=== PATIENT | female | born 1980 | race Caucasian/White ===

== ENCOUNTER 2018-05-19 20:33 | Inpatient (IN) | payer MEDICAID ==
[~2018-05-19] VITALS: Ht 175.3 cm; Wt 140.8 kg
[~2018-05-19 20:33] MED LIST: BROVANA15 MCG/2 M INH; IPRAT-ALBUT 0.5-3 ML UPD; NICODERM C1 PATCH .1 TRANSDERM; NORCO 7.5/325 T1 TA1 PO; PREDNISONE20 MG PO; PROTONIX40 MG PO; PULMICORT0.5 MG/21 UPD; SINGULAIR10 MG PO
[2018-05-19] MEDS ORDERED: ROBAXIN500 MG PO (20:51)
[2018-05-19] MEDS ORDERED: ZOFRAN4 MG PO (20:51)
[2018-05-19 21:01] LABS: BASOPHILS 0.4 % (0-2); EOSINOPHILS 3.2 % (0-7); HEMATOCRIT 34.7 % (36.0-48.0); HEMOGLOBIN 10.7 g/dL (12-16); IMMATURE GRANULOCYTES 0.3 % (0-5); LYMPHOCYTES 20.9 % (15-50); MCH 21.4 pg (26.0-34.0); MCHC 30.8 g/dL (31.0-37.0); MCV 69.3 fL (80.0-100.0); MEAN PLATELET VOLUME 8.7 fL (7.4-10.4); MONOCYTES 5.5 % (2-11); NEUTROPHILS 69.7 % (40-80); RBC 5.01 10x6/uL (4.00-5.40); RDW 17.4 % (11.5-14.5); WBC 13.9 10x3/uL (4.8-10.8)
[2018-05-19 21:06] LABS: PLATELET COUNT 479 10x3/uL (130-400)
[2018-05-19 21:30] LABS: ALBUMIN 3.7 g/dL (3.4-5.0); ANION GAP 18.2 mmol/L (8-16); BILIRUBIN - TOTAL 0.23 mg/dL (0.2-1.3); CALCIUM 9.3 mg/dL (8.5-10.1); CARBON DIOXIDE 26.2 mmol/L (21.0-32.0); CREATININE - SERUM 1.5 mg/dL (0.6-1.3); POTASSIUM - SERUM 3.4 mmol/L (3.5-5.1); PROTEIN - SERUM 8.1 g/dL (6.4-8.2)
[2018-05-19 22:00] VITALS: BP 151/68
[2018-05-19 23:07] LABS: HCG SERUM NEGATIVE (NEGATIVE)
[2018-05-19 23:35] LABS: HCG URINE NEGATIVE (NEGATIVE)
[2018-05-19 23:42] LABS: APPEARANCE CLEAR (CLEAR); BILIRUBIN NEGATIVE (NEGATIVE); COLOR YELLOW (YELLOW); GLUCOSE 100 mg/dL (NEGATIVE); KETONE LARGE mg/dL (NEGATIVE); NITRITE NEGATIVE (NEGATIVE); PROTEIN NEGATIVE (NEGATIVE); UROBILINOGEN NORMAL (NORMAL)
[2018-05-19 23:43] LABS: BACTERIA FEW /hpf (NONE SEEN); EPITHELIAL CELLS 0-5 /hpf (0-5); RED CELLS - URINE NONE SEEN /hpf (0-5); WHITE CELLS - URINE 0-5 /hpf (0-5)
[2018-05-20] VITALS (8 sets, daily range): BP systolic 124–186; BP diastolic 57–86; BMI 37.0
[2018-05-20] MEDS ORDERED: VISTARIL50 MG PO (15:23)
[2018-05-20] MEDS ORDERED: EFFEXOR XR37.5 MG PO (15:24)
[2018-05-20 21:08] LABS: APPEARANCE CLEAR (CLEAR); BILIRUBIN NEGATIVE (NEGATIVE); COLOR YELLOW (YELLOW); GLUCOSE NEGATIVE (NEGATIVE); KETONE LARGE mg/dL (NEGATIVE); NITRITE NEGATIVE (NEGATIVE); PROTEIN 1+ mg/dL (NEGATIVE); SPECIFIC GRAVITY 1.005 (1.005-1.020); UROBILINOGEN NORMAL (NORMAL)
[2018-05-20 21:10] LABS: RED CELLS - URINE 0-5 /hpf (0-5); WHITE CELLS - URINE 0-5 /hpf (0-5)
[2018-05-20 21:11] LABS: BACTERIA MODERATE /hpf (NONE SEEN)
[2018-05-20] MEDS ORDERED: MOBIC7.5 MG PO (22:08)
[2018-05-20] MEDS ORDERED: SUMATRIPTAN SUC25 MG PO (22:14)
[2018-05-21 04:00] VITALS: BP 124/61
[2018-05-21 04:27] LABS: BASOPHILS 0.1 % (0-2); EOSINOPHILS 0.1 % (0-7); HEMATOCRIT 30.2 % (36.0-48.0); HEMOGLOBIN 9.3 g/dL (12-16); IMMATURE GRANULOCYTES 0.3 % (0-5); LYMPHOCYTES 15.6 % (15-50); MCH 21.4 pg (26.0-34.0); MCHC 30.8 g/dL (31.0-37.0); MCV 69.4 fL (80.0-100.0); MEAN PLATELET VOLUME 8.8 fL (7.4-10.4); NEUTROPHILS 75.9 % (40-80); PLATELET COUNT 396 10x3/uL (130-400); RBC 4.35 10x6/uL (4.00-5.40); RDW 17.8 % (11.5-14.5); WBC 15.5 10x3/uL (4.8-10.8)
[2018-05-21 04:35] LABS: ALBUMIN 3.3 g/dL (3.4-5.0); BILIRUBIN - TOTAL 0.3 mg/dL (0.2-1.3); CALCIUM 8.7 mg/dL (8.5-10.1); POTASSIUM - SERUM 3.3 mmol/L (3.5-5.1); PROTEIN - SERUM 7.1 g/dL (6.4-8.2)
[2018-05-21 04:37] LABS: ANION GAP 7.3 mmol/L (8-16); CREATININE - SERUM 0.9 mg/dL (0.6-1.3)
[2018-05-21 08:04] VITALS: BP 169/59
[2018-05-21] MEDS ORDERED: PEPCID AC20 MG PO (10:11)
[2018-05-21] MEDS ORDERED: METOPROLOL TART25 MG PO (10:12)
[2018-05-21 10:58] VITALS: BP 196/98
[2018-05-21 12:11] VITALS: BMI 36.9
[2018-05-21 14:02] LABS: % SATURATION 5 % (15-55); IRON 23 ug/dl (35-150); TOTAL IRON BIND CAPACITY 434 ug/dl (260-445); UNSAT IRON BIND CAPACITY 411 ug/dl (150-375)
[2018-05-21 14:18] LABS: MAGNESIUM - SERUM 1.3 mg/dL (1.8-2.4)
[2018-05-21 15:24] VITALS: BP 127/58
[2018-05-21 19:37] VITALS: Ht 175.3 cm; Wt 140.8 kg
[2018-05-21 21:04] VITALS: BP 148/76
[2018-05-22 05:11] LABS: BASOPHILS 0.3 % (0-2); EOSINOPHILS 1.1 % (0-7); HEMATOCRIT 29.9 % (36.0-48.0); HEMOGLOBIN 8.9 g/dL (12-16); IMMATURE GRANULOCYTES 0.4 % (0-5); LYMPHOCYTES 30.2 % (15-50); MCHC 29.8 g/dL (31.0-37.0); MCV 70.7 fL (80.0-100.0); MONOCYTES 7.1 % (2-11); NEUTROPHILS 60.9 % (40-80); PLATELET COUNT 339 10x3/uL (130-400); RBC 4.23 10x6/uL (4.00-5.40); RDW 17.7 % (11.5-14.5)
[2018-05-22 05:15] LABS: WBC 10.8 10x3/uL (4.8-10.8)
[2018-05-22 05:34] LABS: ALBUMIN 3.1 g/dL (3.4-5.0); ANION GAP 6.2 mmol/L (8-16); BILIRUBIN - TOTAL 0.42 mg/dL (0.2-1.3); CALCIUM 8.2 mg/dL (8.5-10.1); CARBON DIOXIDE 34.4 mmol/L (21.0-32.0); CREATININE - SERUM 0.9 mg/dL (0.6-1.3); PROTEIN - SERUM 6.9 g/dL (6.4-8.2); T4 THYROXIN - FREE 1.07 ng/dL (0.76-1.46); THYROID STIMULATING HORMONE 2.17 uIU/mL (0.36-3.74)
[2018-05-22 05:35] LABS: POTASSIUM - SERUM 3.6 mmol/L (3.5-5.1)
[2018-05-22 05:48] VITALS: BP 122/52
[2018-05-22 08:16] LABS: FOLATE (FOLIC ACID) - SERUM 5.1 ng/mL (>3.0)
[2018-05-22 10:01] LABS: HCG SERUM NEGATIVE (NEGATIVE)
[2018-05-22 20:29] VITALS: BP 191/105
[2018-05-22 21:04] LABS: HCG URINE NEGATIVE (NEGATIVE)
[2018-05-23 05:16] VITALS: BP 153/81
[2018-05-23 05:26] LABS: BASOPHILS 0.2 % (0-2); EOSINOPHILS 0.4 % (0-7); HEMATOCRIT 31.4 % (36.0-48.0); HEMOGLOBIN 9.8 g/dL (12-16); IMMATURE GRANULOCYTES 0.3 % (0-5); MCH 21.5 pg (26.0-34.0); MCHC 31.2 g/dL (31.0-37.0); MEAN PLATELET VOLUME 9.3 fL (7.4-10.4); NEUTROPHILS 73.1 % (40-80); PLATELET COUNT 406 10x3/uL (130-400); RBC 4.55 10x6/uL (4.00-5.40); RDW 17.2 % (11.5-14.5)
[2018-05-23 05:38] LABS: WBC 16.1 10x3/uL (4.8-10.8)
[2018-05-23 05:43] LABS: ALBUMIN 3.2 g/dL (3.4-5.0); ALKALINE PHOSPHATASE 73 U/L (46-116); ALT (SGPT) 22 U/L (10-68); BILIRUBIN - TOTAL 0.42 mg/dL (0.2-1.3); CALC OSMOLALITY 266 mosm/kg (275-300); CALCIUM 8.2 mg/dL (8.5-10.1); CARBON DIOXIDE 29.7 mmol/L (21.0-32.0); CHLORIDE - SERUM 97 mmol/L (98-107); CREATININE - SERUM 0.8 mg/dL (0.6-1.3); GLUCOSE 94 mg/dL (74-106); POTASSIUM - SERUM 3.4 mmol/L (3.5-5.1); PROTEIN - SERUM 7.3 g/dL (6.4-8.2); SODIUM 135 mmol/L (136-145); eGFR NON AFRICAN AMERICAN 85 mL/min (90-120)
[2018-05-23 05:45] LABS: UREA NITROGEN 3 mg/dL (7-18)
[2018-05-23 08:23] VITALS: BP 135/81
[2018-05-23 11:43] VITALS: BP 142/84
[2018-05-23 15:21] VITALS: BP 147/82
[2018-05-23 20:00] VITALS: BP 150/76
[2018-05-24 00:56] VITALS: BP 137/60
[2018-05-24 04:00] VITALS: BP 148/77
[2018-05-24 05:18] LABS: BASOPHILS 0.2 % (0-2); EOSINOPHILS 4.4 % (0-7); HEMATOCRIT 28.8 % (36.0-48.0); HEMOGLOBIN 8.8 g/dL (12-16); IMMATURE GRANULOCYTES 0.2 % (0-5); LYMPHOCYTES 27.2 % (15-50); MCH 21.4 pg (26.0-34.0); MCHC 30.6 g/dL (31.0-37.0); MCV 69.9 fL (80.0-100.0); MEAN PLATELET VOLUME 9.2 fL (7.4-10.4); MONOCYTES 7.4 % (2-11); NEUTROPHILS 60.6 % (40-80); PLATELET COUNT 328 10x3/uL (130-400); RBC 4.12 10x6/uL (4.00-5.40); RDW 17.8 % (11.5-14.5)
[2018-05-24 05:23] LABS: WBC 9.7 10x3/uL (4.8-10.8)
[2018-05-24 05:36] LABS: ALBUMIN 2.8 g/dL (3.4-5.0); ALKALINE PHOSPHATASE 65 U/L (46-116); ALT (SGPT) 18 U/L (10-68); CALCIUM 7.8 mg/dL (8.5-10.1); CARBON DIOXIDE 30.9 mmol/L (21.0-32.0); CHLORIDE - SERUM 101 mmol/L (98-107); CREATININE - SERUM 0.7 mg/dL (0.6-1.3); GLUCOSE 91 mg/dL (74-106); PROTEIN - SERUM 6.4 g/dL (6.4-8.2); SODIUM 140 mmol/L (136-145); eGFR NON AFRICAN AMERICAN > 90 mL/min (90-120)
[2018-05-24 05:46] LABS: CALC OSMOLALITY 274 mosm/kg (275-300); UREA NITROGEN 2 mg/dL (7-18)
[2018-05-24 05:47] LABS: POTASSIUM - SERUM 2.9 mmol/L (3.5-5.1)
[2018-05-24 08:38] VITALS: BP 166/86
[2018-05-24 12:15] VITALS: BP 137/70
[2018-05-24 15:59] VITALS: BP 140/82
[2018-05-24 17:11] LABS: MAGNESIUM - SERUM 1.4 mg/dL (1.8-2.4)
[2018-05-24 17:12] LABS: POTASSIUM - SERUM 3.9 mmol/L (3.5-5.1)
[2018-05-24 22:06] VITALS: BP 124/70
[2018-05-25 00:47] VITALS: BP 127/68
[2018-05-25 05:23] VITALS: BP 131/70
[2018-05-25 06:04] LABS: BASOPHILS 0.2 % (0-2); EOSINOPHILS 4.1 % (0-7); HEMATOCRIT 28.7 % (36.0-48.0); HEMOGLOBIN 8.8 g/dL (12-16); IMMATURE GRANULOCYTES 0.4 % (0-5); LYMPHOCYTES 23.1 % (15-50); MCH 21.8 pg (26.0-34.0); MCHC 30.7 g/dL (31.0-37.0); MEAN PLATELET VOLUME 9.3 fL (7.4-10.4); MONOCYTES 7.9 % (2-11); NEUTROPHILS 64.3 % (40-80); PLATELET COUNT 365 10x3/uL (130-400); RBC 4.04 10x6/uL (4.00-5.40); WBC 10.1 10x3/uL (4.8-10.8)
[2018-05-25 06:36] LABS: ALBUMIN 2.7 g/dL (3.4-5.0); BILIRUBIN - TOTAL 0.16 mg/dL (0.2-1.3); CALCIUM 7.7 mg/dL (8.5-10.1); CARBON DIOXIDE 30.6 mmol/L (21.0-32.0); MAGNESIUM - SERUM 1.5 mg/dL (1.8-2.4); PROTEIN - SERUM 6.3 g/dL (6.4-8.2)
[2018-05-25 06:37] LABS: ANION GAP 9.7 mmol/L (8-16); CREATININE - SERUM 0.9 mg/dL (0.6-1.3); POTASSIUM - SERUM 3.3 mmol/L (3.5-5.1)
[2018-05-25 08:30] VITALS: BP 142/60
[2018-05-25 11:30] VITALS: BP 123/59
[2018-05-25 14:19] LABS: MAGNESIUM - SERUM 1.7 mg/dL (1.8-2.4); POTASSIUM - SERUM 3.8 mmol/L (3.5-5.1)
[2018-05-25 15:00] VITALS: BP 144/63
[2018-05-25 22:50] VITALS: BP 120/63
[2018-05-26 01:58] VITALS: BP 134/69
[2018-05-26 05:07] LABS: BASOPHILS 0.3 % (0-2); EOSINOPHILS 6.7 % (0-7); HEMOGLOBIN 8.3 g/dL (12-16); IMMATURE GRANULOCYTES 0.8 % (0-5); LYMPHOCYTES 27.9 % (15-50); MCH 21.2 pg (26.0-34.0); MCHC 29.6 g/dL (31.0-37.0); MCV 71.6 fL (80.0-100.0); MEAN PLATELET VOLUME 9.1 fL (7.4-10.4); MONOCYTES 6.8 % (2-11); NEUTROPHILS 57.5 % (40-80); PLATELET COUNT 383 10x3/uL (130-400); RBC 3.91 10x6/uL (4.00-5.40); RDW 18.4 % (11.5-14.5); WBC 9.2 10x3/uL (4.8-10.8)
[2018-05-26 05:46] LABS: ALBUMIN 2.8 g/dL (3.4-5.0); ANION GAP 8.4 mmol/L (8-16); BILIRUBIN - TOTAL 0.16 mg/dL (0.2-1.3); CALCIUM 8.2 mg/dL (8.5-10.1); CARBON DIOXIDE 32.3 mmol/L (21.0-32.0); CREATININE - SERUM 0.9 mg/dL (0.6-1.3); POTASSIUM - SERUM 3.7 mmol/L (3.5-5.1); PROTEIN - SERUM 6.3 g/dL (6.4-8.2)
[2018-05-26 06:15] VITALS: BP 135/62
[2018-05-26 07:56] VITALS: BP 149/76
[2018-05-26 10:44] VITALS: BP 120/63
[2018-05-26 14:17] VITALS: BP 128/62
[2018-05-26 20:00] VITALS: BP 126/61; BP 173/86
[2018-05-27 04:00] VITALS: BP 111/57
[2018-05-27 08:19] VITALS: BP 139/42
[2018-05-27 15:13] VITALS: BP 146/69
[2018-05-27 15:21] LABS: HEMATOCRIT 28.5 % (36.0-48.0); HEMOGLOBIN 8.8 g/dL (12-16); LYMPHOCYTES 32.5 % (15-50); MCH 22.1 pg (26.0-34.0); MCHC 30.9 g/dL (31.0-37.0); MCV 71.4 fL (80.0-100.0); MEAN PLATELET VOLUME 8.6 fL (7.4-10.4); NEUTROPHILS 56.8 % (40-80); PLATELET COUNT 411 10x3/uL (130-400); RBC 3.99 10x6/uL (4.00-5.40); WBC 8.7 10x3/uL (4.8-10.8)
[2018-05-27 15:35] LABS: ANION GAP 9.1 mmol/L (8-16); BILIRUBIN - TOTAL 0.15 mg/dL (0.2-1.3); CALCIUM 8.9 mg/dL (8.5-10.1); CARBON DIOXIDE 31.6 mmol/L (21.0-32.0); CREATININE - SERUM 0.9 mg/dL (0.6-1.3); POTASSIUM - SERUM 3.7 mmol/L (3.5-5.1); PROTEIN - SERUM 6.6 g/dL (6.4-8.2)
[2018-05-27 20:00] VITALS: BP 127/60
[2018-05-28] VITALS: BP 148/89
[2018-05-28 04:00] VITALS: BP 137/80
[2018-05-28 05:21] LABS: BASOPHILS 0.4 % (0-2); EOSINOPHILS 6.2 % (0-7); HEMOGLOBIN 9.4 g/dL (12-16); LYMPHOCYTES 30.3 % (15-50); MCH 22.1 pg (26.0-34.0); MCHC 30.3 g/dL (31.0-37.0); MCV 72.9 fL (80.0-100.0); MONOCYTES 8.2 % (2-11); NEUTROPHILS 53.9 % (40-80); PLATELET COUNT 442 10x3/uL (130-400); RBC 4.25 10x6/uL (4.00-5.40); RDW 19.8 % (11.5-14.5)
[2018-05-28 05:51] LABS: ALBUMIN 3.2 g/dL (3.4-5.0); ANION GAP 9.7 mmol/L (8-16); BILIRUBIN - TOTAL 0.15 mg/dL (0.2-1.3); CALCIUM 9.1 mg/dL (8.5-10.1); POTASSIUM - SERUM 3.7 mmol/L (3.5-5.1)
[2018-05-28 07:54] VITALS: BP 162/53
[2018-05-28] MEDS ORDERED: PROTONIX40 MG PO (09:41)
[2018-05-28] MEDS ORDERED: CARAFATE1 G/10 ML PO (09:42)
[2018-05-28] MEDS ORDERED: NORCO 7.5/325 T1 TA1 PO (10:55)
[2018-05-28] MEDS ORDERED: OMEPRAZOLE20 M1 PO (11:18)
== END 2018-05-28 11:52 | disposition home or self-care (01) | DRG 381 ==
LOC: D.ER 20:33 → D.EDHOLD 05-20 00:29 → OBSVTIME 05-20 00:29 → D.EDHOLD 05-20 00:29 → D.M2 05-20 12:32 → D.EDHOLD 05-20 13:28 → D.M2 05-20 13:59
PROVIDERS: Anesthesiology; Family Medicine; Internal Medicine Gastroenterology; Internal Medicine Nephrology
PROC: 0DB68ZX Excision of Stomach, Via Natural or Artificial Opening Endoscopic, Diagnostic (ICD-10-PCS; 2018-05-22)
PROC: 0DB98ZX Excision of Duodenum, Via Natural or Artificial Opening Endoscopic, Diagnostic (ICD-10-PCS; principal; 2018-05-22 12:25)
DX: K22.10 Ulcer of esophagus without bleeding (principal); N17.9 Acute kidney failure, unspecified; N39.0 Urinary tract infection, site not specified; A08.4 Viral intestinal infection, unspecified; D50.9 Iron deficiency anemia, unspecified; D47.3 Essential (hemorrhagic) thrombocythemia; I12.9 Hypertensive chronic kidney disease with stage 1 through stage 4 chronic kidney disease, or unspecified chronic kidney disease; E11.22 Type 2 diabetes mellitus with diabetic chronic kidney disease; N18.9 Chronic kidney disease, unspecified; E87.6 Hypokalemia; J44.9 Chronic obstructive pulmonary disease, unspecified; K44.9 Diaphragmatic hernia without obstruction or gangrene; E66.01 Morbid (severe) obesity due to excess calories; Z68.36 Body mass index [BMI] 36.0-36.9, adult; K29.70 Gastritis, unspecified, without bleeding; E11.43 Type 2 diabetes mellitus with diabetic autonomic (poly)neuropathy; K31.84 Gastroparesis; Z72.0 Tobacco use

== ENCOUNTER 2018-06-02 12:23 | Emergency (ER) | payer MEDICAID ==
[~2018-06-02] VITALS: Ht 175.3 cm; Wt 128.2 kg
[~2018-06-02 12:23] MED LIST changes: +CARAFATE1 G/10 ML PO; +EFFEXOR XR37.5 MG PO; +METOPROLOL TART25 MG PO; +MOBIC7.5 MG PO; +OMEPRAZOLE20 M1 PO; +PEPCID AC20 MG PO; +ROBAXIN500 MG PO; +SUMATRIPTAN SUC25 MG PO; +VISTARIL50 MG PO; +ZOFRAN4 MG PO
[2018-06-02 12:29] VITALS: Ht 175.3 cm; Wt 128.2 kg
[2018-06-02 13:31] LABS: BASOPHILS 0.2 % (0-2); EOSINOPHILS 0.3 % (0-7); HEMATOCRIT 40.3 % (36.0-48.0); HEMOGLOBIN 12.8 g/dL (12-16); IMMATURE GRANULOCYTES 0.4 % (0-5); LYMPHOCYTES 9.4 % (15-50); MCH 23.1 pg (26.0-34.0); MCHC 31.8 g/dL (31.0-37.0); MCV 72.9 fL (80.0-100.0); MEAN PLATELET VOLUME 8.9 fL (7.4-10.4); MONOCYTES 2.3 % (2-11); NEUTROPHILS 87.4 % (40-80); PLATELET COUNT 416 10x3/uL (130-400); RBC 5.53 10x6/uL (4.00-5.40)
[2018-06-02 13:49] LABS: ANION GAP 21.4 mmol/L (8-16); BILIRUBIN - TOTAL 0.54 mg/dL (0.2-1.3); CARBON DIOXIDE 24.5 mmol/L (21.0-32.0); POTASSIUM - SERUM 3.9 mmol/L (3.5-5.1); PROTEIN - SERUM 8.3 g/dL (6.4-8.2)
[2018-06-02 14:03] LABS: APPEARANCE CLEAR (CLEAR); BACTERIA FEW /hpf (NONE SEEN); BILIRUBIN NEGATIVE (NEGATIVE); COLOR YELLOW (YELLOW); EPITHELIAL CELLS 0-5 /hpf (0-5); GLUCOSE NEGATIVE (NEGATIVE); KETONE LARGE mg/dL (NEGATIVE); MUCUS <1+ /lpf (NONE SEEN); NITRITE NEGATIVE (NEGATIVE); PROTEIN TRACE mg/dL (NEGATIVE); RED CELLS - URINE OCC /hpf (0-5); SPECIFIC GRAVITY 1.005 (1.005-1.020); UROBILINOGEN NORMAL (NORMAL); WHITE CELLS - URINE RARE /hpf (0-5)
[2018-06-02 14:10] LABS: HCG SERUM NEGATIVE (NEGATIVE)
[2018-06-02] MEDS ORDERED: PHENERGAN25 MG RC (18:41)
[2018-06-02 19:18] VITALS: BP 148/80
== END 2018-06-02 19:18 | disposition home or self-care (01) ==
LOC: D.ER 12:23
PROVIDERS: Emergency Medicine
DX: K22.10 Ulcer of esophagus without bleeding (principal); R19.7 Diarrhea, unspecified

== ENCOUNTER → 2018-11-30 08:54 | Outpatient (CLI) | payer MEDICAID ==
[2018-06-02 12:29] VITALS: BMI 41.7
[~2018-11-30 08:54] MED LIST changes: +PHENERGAN25 MG RC
[2018-11-30 09:29] LABS: BASOPHILS 0.3 % (0-2); EOSINOPHILS 4.9 % (0-7); HEMATOCRIT 39.4 % (36.0-48.0); HEMOGLOBIN 13.2 g/dL (12-16); IMMATURE GRANULOCYTES 0.3 % (0-5); LYMPHOCYTES 34.4 % (15-50); MCH 27.2 pg (26.0-34.0); MCHC 33.5 g/dL (31.0-37.0); MCV 81.2 fL (80.0-100.0); MEAN PLATELET VOLUME 9.4 fL (7.4-10.4); MONOCYTES 5.2 % (2-11); NEUTROPHILS 54.9 % (40-80); PLATELET COUNT 367 10x3/uL (130-400); RBC 4.85 10x6/uL (4.00-5.40); RDW 14.1 % (11.5-14.5)
== END | disposition home or self-care (01) ==
LOC: D.LAB 08:00 → D.RT 09:00
PROVIDERS: ATTEND Internal Medicine Pulmonary Disease
DX: J44.9 Chronic obstructive pulmonary disease, unspecified (principal); J45.909 Unspecified asthma, uncomplicated

== ENCOUNTER → 2019-04-04 15:19 | Outpatient (CLI) | payer MEDICAID ==
[2018-06-02 12:29] VITALS: BMI 41.7
== END | disposition home or self-care (01) ==
LOC: D.RT 03-02 09:00
PROVIDERS: ATTEND Internal Medicine Pulmonary Disease
DX: J45.909 Unspecified asthma, uncomplicated (principal)

== ENCOUNTER 2019-09-04 10:48 | Emergency (ER) | payer OTHER ==
[2019-09-04 10:51] VITALS: Ht 175.3 cm
[2019-09-04] MEDS ORDERED: HYDROCODON-ACE1 EAC2 PO (11:04)
[2019-09-04] MEDS ORDERED: CLEOCIN HCL300 MG PO (11:04)
[2019-09-04] MEDS ORDERED: PHENERGAN25 M1 PO (11:07)
[2019-09-04] MEDS ORDERED: PROTONIX40 MG PO (11:14)
[2019-09-04] MEDS ORDERED: MOBIC7.5 MG PO (11:14)
[2019-09-04] MEDS ORDERED: CYCLOBENZAPRINE10 MG PO (11:14)
[2019-09-04] MEDS ORDERED: TESSALON PERLE100 MG PO (11:14)
[2019-09-04] MEDS ORDERED: SINGULAIR10 MG PO (11:15)
[2019-09-04] MEDS ORDERED: SEROQUEL XR150 MG PO (11:15)
[2019-09-04] MEDS ORDERED: HYDROCHLOROTH12.5 M1 PO (11:15)
[2019-09-04 11:19] VITALS: BP 142/87
== END 2019-09-04 11:20 | disposition home or self-care (01) ==
LOC: D.ER 10:48
DX: K04.7 Periapical abscess without sinus (principal); J45.909 Unspecified asthma, uncomplicated; Z72.0 Tobacco use

== ENCOUNTER → 2019-09-05 09:44 | Outpatient (CLI) | payer OTHER ==
[~2019-09-05 09:44] MED LIST changes: +CLEOCIN HCL300 MG PO; +CYCLOBENZAPRINE10 MG PO; +HYDROCHLOROTH12.5 M1 PO; +HYDROCODON-ACE1 EAC2 PO; +PHENERGAN25 M1 PO; +SEROQUEL XR150 MG PO; +TESSALON PERLE100 MG PO
== END | disposition home or self-care (01) ==
LOC: D.HCCARDIO 09:44
PROVIDERS: ATTEND Internal Medicine Cardiovascular Disease
DX: I20.9 Angina pectoris, unspecified (principal)

== ENCOUNTER 2020-01-28 01:57 | Inpatient (IN) | payer OTHER ==
[~2020-01-28] VITALS: Ht 175.3 cm; Wt 156.8 kg
[2020-01-28] MEDS ORDERED: SKELAXIN800 MG PO (02:22)
[2020-01-28] MEDS ORDERED: GABAPENTIN300 MG PO (02:23)
[2020-01-28 02:24] LABS: BILIRUBIN NEGATIVE (NEGATIVE); GLUCOSE NEGATIVE (NEGATIVE); KETONE NEGATIVE (NEGATIVE); NITRITE NEGATIVE (NEGATIVE); UROBILINOGEN NORMAL (NORMAL)
[2020-01-28 02:26] LABS: BASOPHILS 0.3 % (0-2); EOSINOPHILS 0.6 % (0-7); HEMOGLOBIN 9.4 g/dL (12-16); IMMATURE GRANULOCYTES 0.6 % (0-5); LYMPHOCYTES 24.9 % (15-50); MCH 21.3 pg (26.0-34.0); MCHC 30.3 g/dL (31.0-37.0); MCV 70.3 fL (80.0-100.0); MEAN PLATELET VOLUME 7.8 fL (7.4-10.4); MONOCYTES 4.8 % (2-11); NEUTROPHILS 68.8 % (40-80); RBC 4.41 10x6/uL (4.00-5.40); RDW 14.9 % (11.5-14.5); WBC 6.9 10x3/uL (4.8-10.8)
[2020-01-28 02:33] LABS: PLATELET COUNT 255 10x3/uL (130-400)
[2020-01-28 02:36] LABS: CALC OSMOLALITY 276 mosm/kg (275-300); CALCIUM 8.8 mg/dL (8.5-10.1); CARBON DIOXIDE 32.3 mmol/L (21.0-32.0); CHLORIDE - SERUM 99 mmol/L (98-107); CREATININE - SERUM 2.2 mg/dL (0.6-1.3); GLUCOSE 119 mg/dL (74-106); POTASSIUM - SERUM 3.9 mmol/L (3.5-5.1); SODIUM 140 mmol/L (136-145); UREA NITROGEN 5 mg/dL (7-18); eGFR NON AFRICAN AMERICAN 26 mL/min (90-120)
[2020-01-28 03:22] LABS: C-REACTIVE PROTEIN 0.7 mg/dL (0.0-0.9); THYROID STIMULATING HORMONE 0.31 uIU/mL (0.36-3.74)
[2020-01-28 03:38] LABS: ALBUMIN 3.6 g/dL (3.4-5.0); ALKALINE PHOSPHATASE 88 U/L (30-120); ALT (SGPT) 23 U/L (10-68); BILIRUBIN - TOTAL 0.27 mg/dL (0.2-1.3); HCG - QUANTITATIVE (MATERNAL) 1 mIU/mL; LIPASE 82 U/L (73-393); MAGNESIUM - SERUM 2.2 mg/dL (1.8-2.4); PRO BNP 647 pg/mL (0-125); PROTEIN - SERUM 7.6 g/dL (6.4-8.2); TROPONIN-I < 0.017 ng/mL (0.000-0.060)
[2020-01-28 04:29] LABS: % SATURATION 3 % (15-55); IRON 18 ug/dl (35-150); TOTAL IRON BIND CAPACITY 502 ug/dl (260-445); UNSAT IRON BIND CAPACITY 484 ug/dl (150-375)
[2020-01-28 05:32] VITALS: BP 147/66; BMI 44.4
[2020-01-28 07:31] VITALS: Ht 175.3 cm; Wt 156.8 kg
[2020-01-28 09:31] VITALS: BP 136/67
--- NOTE | 2020-01-28 11:21 | NUR ---
PT ALERT X 4. EXPIRATORY WHEEZES TO BILAT UPPER LOBES AND RIGHT MIDDLE LOBE, DIMINISHED TO LOWER LOBES, 3L O2 PER NC. IV TO RIGHT AC, PATENT, DRESSING CDI. PT REPORTING SEVERE HEADACHE AND PAIN OF 8/10, MEDICATED PER ORDERS, WILL CONTINUE TO MONITOR. DAUGHTER AT BEDSIDE. BED LOW, CALL LIGHT IN REACH. NO OTHER NEEDS AT THIS TIME.
[2020-01-28 12:35] LABS: C-REACTIVE PROTEIN 0.5 mg/dL (0.0-0.9); URIC ACID 2.7 mg/dL (2.6-7.2)
[2020-01-28 14:07] LABS: ERYTHROCYTE SEDIMENTATION RATE 10 mm/hr (0-20)
--- NOTE | 2020-01-28 19:30 | NUR ---
PT IN BED, AAO X 3, RESP EVEN AND UNLABORED, NO DISTRESS NOTED, CL IN REACH, SR UP X 2.
[2020-01-28 20:10] VITALS: BP 142/72
[2020-01-29] VITALS: BP 142/67
[2020-01-29 01:29] LABS: UDS - AMPHET NEGATIVE QUAL (NEGATIVE); UDS - BARB NEGATIVE QUAL (NEGATIVE); UDS - BENZO NEGATIVE QUAL (NEGATIVE); UDS - COCAINE NEGATIVE QUAL (NEGATIVE); UDS - OPIATE POSITIVE QUAL (NEGATIVE); UDS - PCP NEGATIVE QUAL (NEGATIVE); UDS - THC POSITIVE QUAL (NEGATIVE)
--- NOTE | 2020-01-29 02:06 | NUR ---
I have reviewed this patient and I concur with the Shift Assessment completed by the Licensed Practical Nurse today this shift.
[2020-01-29 04:00] VITALS: BP 148/67
[2020-01-29 04:49] LABS: BASOPHILS 0.1 % (0-2); EOSINOPHILS 0 % (0-7); HEMATOCRIT 29.3 % (36.0-48.0); HEMOGLOBIN 8.5 g/dL (12-16); IMMATURE GRANULOCYTES 0.5 % (0-5); LYMPHOCYTES 20.6 % (15-50); MCH 20.9 pg (26.0-34.0); MCV 72.2 fL (80.0-100.0); MEAN PLATELET VOLUME 7.9 fL (7.4-10.4); MONOCYTES 6.7 % (2-11); NEUTROPHILS 72.1 % (40-80); PLATELET COUNT 280 10x3/uL (130-400); RBC 4.06 10x6/uL (4.00-5.40); RDW 15.5 % (11.5-14.5)
[2020-01-29 04:52] LABS: WBC 10.5 10x3/uL (4.8-10.8)
[2020-01-29 05:09] LABS: ALBUMIN 3.6 g/dL (3.4-5.0); ANION GAP 9.2 mmol/L (8-16); BILIRUBIN - TOTAL 0.15 mg/dL (0.2-1.3); CALCIUM 8.5 mg/dL (8.5-10.1); CARBON DIOXIDE 29.8 mmol/L (21.0-32.0); CREATININE - SERUM 1.7 mg/dL (0.6-1.3); MAGNESIUM - SERUM 2.2 mg/dL (1.8-2.4); PHOSPHOROUS 3.4 mg/dL (2.5-4.9); PROTEIN - SERUM 7.4 g/dL (6.4-8.2)
[2020-01-29 08:44] VITALS: BP 155/88
[2020-01-29 10:53] LABS: % SATURATION 3 % (15-55); IRON 17 ug/dl (35-150); TOTAL IRON BIND CAPACITY 477 ug/dl (260-445)
[2020-01-29 10:55] LABS: UNSAT IRON BIND CAPACITY 460 ug/dl (150-375)
[2020-01-29 11:41] VITALS: BP 140/72
[2020-01-29 15:24] VITALS: BP 125/61
--- NOTE | 2020-01-29 20:01 | NUR ---
REPORTED BY OFFGOING THAT PT HAD EATEN 15 SHERBERTS ON DAY SHIFT. EDUCATED PT ON CLEAR LIQUID DIET. STATED THEY SENT HER CHICKEN BROTH FOR SUPPER AND SHE COULD'NT EAT IT. EXPLAINED THAT SHE NEEDED TO LET HER GUT REST.
[2020-01-29 20:30] VITALS: BP 124/76
--- NOTE | 2020-01-29 21:03 | NUR ---
RECEIVED LAYING IN BED WITH EYES CLOSED. DID NOT AROUSE WITH VERBAL STIMULI. REQUIRED TACTILE STIMULATION. DTR AT BEDSIDE. REQUESTED MORPHINE SOON SHE WOKE UP. LOOKED AT [facility] AND SHE HAD 7 DOSES OF MORPHINE 4 MG SINCE LAST NIGHT. CONCERNED OVER HER NOT WAkING UP WITH VERBAL STIMULI. NEW ORDERS TO D/C MORPHINE AND RESTART HOME NORCO 7.5 Q6 PRN ALSO, ACETAMENOPHEN 650MG PO IF NEEDED. NOTIFIED PT AND SHE ASKED "CAN'T I GET ONE MORE DOSE". EXPLANED ORDER HAD BEEN D/C'D. STATED "OH DARN".
[2020-01-30] VITALS (7 sets, daily range): BP systolic 138–205; BP diastolic 61–97
--- NOTE | 2020-01-30 04:50 | NUR ---
WHEN THIS NURSE ENTERED THE ROOM EARLIER FOR MEDICATIONS THE ROOM SMELLED OF MARIJUANA. ASKED PT WHAT THE SMELL WAS AND SHE REPLIED "I DON'T SMELL ANYTHING". TOLD HER IT SMELLED LIKE MARIJUANA. PT STATED " OH THAT WOULD BE NICE". ASKED HER IF SHE HAD A MARIJUANA CARD AND SHE STATED "YES". TOLD HER TO LET ME GIVE HER SOME ADVICE. IF SHE GETS CAUGHT SMOKING IN THIS ROOM SHE CAN BE ARRESTED. SO TO BE WARNED. PT THANKED THIS NURSE FOR THE ADVICE.
[2020-01-30 07:23] LABS: BASOPHILS 0.1 % (0-2); EOSINOPHILS 0 % (0-7); HEMATOCRIT 28.4 % (36.0-48.0); HEMOGLOBIN 8.3 g/dL (12-16); IMMATURE GRANULOCYTES 0.5 % (0-5); LYMPHOCYTES 15.1 % (15-50); MCH 20.9 pg (26.0-34.0); MCHC 29.2 g/dL (31.0-37.0); MCV 71.4 fL (80.0-100.0); MONOCYTES 4.8 % (2-11); NEUTROPHILS 79.5 % (40-80); PLATELET COUNT 237 10x3/uL (130-400); RBC 3.98 10x6/uL (4.00-5.40); RDW 15.3 % (11.5-14.5)
[2020-01-30 07:29] LABS: WBC 7.3 10x3/uL (4.8-10.8)
[2020-01-30 07:34] LABS: ALBUMIN 3.7 g/dL (3.4-5.0); ANION GAP 8.6 mmol/L (8-16); BILIRUBIN - TOTAL 0.15 mg/dL (0.2-1.3); CALCIUM 8.5 mg/dL (8.5-10.1); CARBON DIOXIDE 29.6 mmol/L (21.0-32.0); MAGNESIUM - SERUM 2.1 mg/dL (1.8-2.4); PHOSPHOROUS 3.3 mg/dL (2.5-4.9); POTASSIUM - SERUM 4.2 mmol/L (3.5-5.1); PROTEIN - SERUM 7.2 g/dL (6.4-8.2)
[2020-01-30 07:37] LABS: CREATININE - SERUM 1.2 mg/dL (0.6-1.3)
--- NOTE | 2020-01-30 19:24 | NUR ---
REPORT RECEIVED AND ROUNDING COMPLETE, PATIENT LAYING IN BED IN SUPINE POSITION, EYES CLOSED BREATHING EVEN AND UNLABORED. DAUGHTER AT BEDSIDE. PIV IN RIGHT AC WITH FLUIDS RUNNING, WITH NO S/SX OF INFILTRATION. NO NEEDS AT THIS TIME, CALL LIGHT WITHIN REACH AND BED IN LOWEST LOCKED POSITION.
--- NOTE | 2020-01-31 00:06 | NUR ---
PATIENT UPSET THAT THE NIGHT NURSE LAST NIGHT GOT HER PAIN MEDS THAT SHE NEEDS D/C. I CALLED JETT CASAS ACCESS RN AND SHE STATED TO GIVE THE PATIENT TYLENOL IF SHE NEEDS IT, ALSO NEW ORDER FOR NICOTINE PATCH. WILL FOLLOW ORDERS.
--- NOTE | 2020-01-31 01:45 | NUR ---
JETT CASAS GAVE NEW ORDERS, PATIENT STILL IN PAIN AND THROWING UP. WILL FOLLOW NEW ORDERS.
[2020-01-31 04:23] VITALS: BP 175/69
[2020-01-31 06:33] LABS: BASOPHILS 0.1 % (0-2); EOSINOPHILS 0 % (0-7); HEMATOCRIT 28.4 % (36.0-48.0); HEMOGLOBIN 8.3 g/dL (12-16); IMMATURE GRANULOCYTES 0.2 % (0-5); LYMPHOCYTES 23.3 % (15-50); MCH 20.7 pg (26.0-34.0); MCHC 29.2 g/dL (31.0-37.0); MCV 70.8 fL (80.0-100.0); MEAN PLATELET VOLUME 8.1 fL (7.4-10.4); MONOCYTES 7.9 % (2-11); NEUTROPHILS 68.5 % (40-80); PLATELET COUNT 270 10x3/uL (130-400); RBC 4.01 10x6/uL (4.00-5.40); RDW 15.1 % (11.5-14.5); WBC 8.8 10x3/uL (4.8-10.8)
[2020-01-31 06:56] LABS: ALBUMIN 3.5 g/dL (3.4-5.0); ANION GAP 7.1 mmol/L (8-16); BILIRUBIN - TOTAL 0.25 mg/dL (0.2-1.3); CALCIUM 8.2 mg/dL (8.5-10.1); CREATININE - SERUM 1.2 mg/dL (0.6-1.3); POTASSIUM - SERUM 3.1 mmol/L (3.5-5.1); PROTEIN - SERUM 6.8 g/dL (6.4-8.2)
[2020-01-31 09:04] VITALS: BP 172/66
[2020-01-31 13:19] VITALS: BP 144/75
--- NOTE | 2020-01-31 14:25 | NUR ---
Nutrition Follow-up: Pt sleeping soundly and did not wake at time of visit this AM. Chart reviewed. Noted pt with N/V overnight. Clear liquids x 3 days. Diet: Clear Liquid Wt: 337# (01/30); 300# (01/27 - stated) Labs noted: K+ 3.1, Glu 118 Meds noted: Solumedrol, Zofran, Pepcid, Carafate, NS @ 50, electrolyte protocol -If unable to advance past clears, rec start Procalamine. -Monitor wt; noted daily wts ordered. -RD following.
[2020-01-31 16:56] VITALS: BP 169/81
[2020-01-31 20:17] VITALS: BP 173/75
--- NOTE | 2020-01-31 20:29 | NUR ---
REPORT RECEIVED AND ROUNDING COMPLETE. PATIENT LAYING IN BED IN SUPINE POSITION. EYES CLOSED BREATHING SHALLOW AND EVEN. PATIENT OPENED EYES SAID HI AMD THEN WENT RIGHT BACK TO SLEEP. RIGHT AC PIV THAT IS RUNNING FLUIDS AT THIS TIME, PIV IS PATENT WITH NO S/SX OF INFILTRATION. PATIENT IS WEARING NASAL CANNULA WITH 02 AT 2L. NO DISTRESS NOTED AT THIS TME. CALL LIGHT WITHIN REACH AND BED IN LOWEST LOCKED POSITION.
[2020-02-01 00:24] VITALS: BP 142/73
[2020-02-01 05:11] VITALS: BP 177/73
[2020-02-01 06:18] LABS: BASOPHILS 0 % (0-2); EOSINOPHILS 0.1 % (0-7); HEMOGLOBIN 8.4 g/dL (12-16); IMMATURE GRANULOCYTES 0.4 % (0-5); LYMPHOCYTES 18.3 % (15-50); MCH 20.7 pg (26.0-34.0); MCV 71.6 fL (80.0-100.0); MEAN PLATELET VOLUME 8.1 fL (7.4-10.4); MONOCYTES 5.7 % (2-11); NEUTROPHILS 75.5 % (40-80); PLATELET COUNT 260 10x3/uL (130-400); RBC 4.05 10x6/uL (4.00-5.40); RDW 15.2 % (11.5-14.5); WBC 9.1 10x3/uL (4.8-10.8)
[2020-02-01 06:55] LABS: ALBUMIN 3.6 g/dL (3.4-5.0); BILIRUBIN - TOTAL 0.2 mg/dL (0.2-1.3); CALCIUM 8.1 mg/dL (8.5-10.1); CARBON DIOXIDE 32.5 mmol/L (21.0-32.0); CREATININE - SERUM 1.1 mg/dL (0.6-1.3); MAGNESIUM - SERUM 2.1 mg/dL (1.8-2.4); POTASSIUM - SERUM 3.5 mmol/L (3.5-5.1); PROTEIN - SERUM 6.9 g/dL (6.4-8.2)
[2020-02-01 06:56] LABS: PHOSPHOROUS 4.2 mg/dL (2.5-4.9)
[2020-02-01 08:25] VITALS: BP 164/80
[2020-02-01 12:37] VITALS: BP 186/88
--- NOTE | 2020-02-01 13:43 | MORECARE ---
CASE MANAGEMENT DISCHARGE SUMMARY PATIENT: HALI JOHNSON UNIT: [id number] ADM DATE: 01/28/20 AGE: 39 : 80 SEX: F ROOM/BED: D.3937 AUTHOR: SHEEBA OLIVER PHYSICIAN: REFERRING PHYSICIAN: MALACHI SUMMERS MD DATE OF SERVICE: 02/01/20 Discharge Plan Patient Name: HALI JOHNSON [facility] [facility] 1980 Planned Disposition: Home Anticipated Discharge Date: Discharge Date: Expected LOS: Initial Reviewer: [email or web address] Initial Review Date: 01/28/2020 Generated: 02/01/20 2:43 pm DCPIA - Discharge Planning Initial Assessment Updated by [email or web address]: Marie Mark on 02/01/20 1:37 pm * Is the patient Alert and Oriented? Yes * How many steps to enter\exit or inside your home? 11/0 * PCP Fidencio * [facility] * Preadmission Environment Home with Family * ADLs Independent * Equipment CPAP Nebulizer * List name and contact numbers for known caregivers / representatives who currently or will assist patient after discharge: Leilani (dtr) [phone] * Verbal permission to speak to the caregivers and representatives has been obtained from the patient. Yes * Community resources currently utilized None * Additional services required to return to the preadmission environment? Yes * Can the patient safely return to the preadmission environment? Yes * Has this patient been hospitalized within the prior 30 days at any hospital? No Patient Name: HALI JOHNSON Page [id number] at 1343 All edits/amendments must be made on the electronic document DICTATION DATE: 02/01/20 1343 GLOBE MOUNTER: JANA 02/01/20 1343 RPT#: [id number] DC DATE: STATUS: ADM IN [facility] [address] [place] [address] END OF REPORT
--- NOTE | 2020-02-01 14:11 | MORECARE ---
CASE MANAGEMENT DISCHARGE SUMMARY PATIENT: HALI JOHNSON UNIT: [id number] ADM DATE: 01/28/20 AGE: 39 : 80 SEX: F ROOM/BED: D.4926 AUTHOR: BENITO,DOC PHYSICIAN: REFERRING PHYSICIAN: MALACHI SUMMERS MD DATE OF SERVICE: 02/01/20 Discharge Plan Patient Name: HALI JOHNSON Facility: [facility]:[place] : 1980 Planned Disposition: Home Anticipated Discharge Date: Discharge Date: Expected LOS: Initial Reviewer: [email or web address] Initial Review Date: 01/28/2020 Generated: 02/01/20 3:10 pm Comments DCP- Discharge Planning Updated by [email or web address]: Marie Mark on 02/01/20 1:[address] Patient Name: HALI JOHNSON Admission Status: ER Accout number: [id number] Admission Date: 01-28-2020 : 1980 Admission Diagnosis:UNSPECIFIED ASTHMA WITH (ACUTE) EXACERBATION Attending: FANTASMA Current LOS: 4 Anticipated DC Date: Planned Disposition: Home Primary Insurance: [employer]GED MEDICAID Discharge Planning Comments: CM met with patient to complete initial dc planning assessment. CM educated patient on the CM role and verbal consent given by patient to complete assessment. CM verified patient's address, phone number, and emergency contact phone numbers. Pt states she gets her mail at [address] [place] [address], but lives with her extended family at [address] [place] [address]. At discharge patient plans to return home and feels this is a safe discharge. CM discussed availability of home health, rehab services, and medical equipment. Patient states she has become weak during this illness and would like HH. States her niece works at a home health company and would like to use them. States she will get back with CM when she discovers the name. States she uses [facility] for her CPAP. Pt is on 2 liters o2 at present. CM anticipates a walk test prior to dc to evaluate the need for home/portable oxygen. Patient denied known discharge needs at this time. Transportation provider at discharge will be her boyfriend. CM will continue to follow and will assist as needed with dc plans/needs. Press Operator [employer]: Marie Mark MSN,RN,CM DCPIA - Discharge Planning Initial Assessment Updated by [email or web address]: Marie Mark on 02/01/20 1:37 pm * Is the patient Alert and Oriented? Yes * How many steps to enter\exit or inside your home? 11/0 * PCP Fidencio * [facility] * Preadmission Environment Home with Family * ADLs Independent * Equipment CPAP Nebulizer * List name and contact numbers for known caregivers / representatives who currently or will assist patient after discharge: Leilani (dtr) [phone] * Verbal permission to speak to the caregivers and representatives has been obtained from the patient. Yes * Community resources currently utilized None * Additional services required to return to the preadmission environment? Yes * Can the patient safely return to the preadmission environment? Yes * Has this patient been hospitalized within the prior 30 days at any hospital? No Last DP export: 02/01/20 12:43 p Patient Name: HALI JOHNSON Page [id number] at 1411 All edits/amendments must be made on the electronic document DICTATION DATE: 02/01/201409 COLLEGE PHYSICS INSTRUCTOR: JANA 02/01/20 141 RPT#: [id number] DC DATE: STATUS: ADM IN [facility] [address] [place] [address] END OF REPORT
[2020-02-01 16:20] VITALS: BP 182/79
[2020-02-01 19:08] LABS: OVA + PARASITE EXAM Final report (())
--- NOTE | 2020-02-01 19:30 | NUR ---
PT IN BED, AAO X 3, RESP EVEN AND UNLABORED. NO DISTRESS NOTED, CL IN REACH, SR UP X 2.
[2020-02-01 20:00] VITALS: BP 189/75
[2020-02-02] VITALS: BP 170/59
[2020-02-02 04:00] VITALS: BP 168/63
[2020-02-02 05:23] LABS: HEMATOCRIT 29.9 % (36.0-48.0); LYMPHOCYTES 13.9 % (15-50); MCH 21.5 pg (26.0-34.0); MCHC 30.1 g/dL (31.0-37.0); MCV 71.4 fL (80.0-100.0); MEAN PLATELET VOLUME 8.3 fL (7.4-10.4); NEUTROPHILS 81.1 % (40-80); RBC 4.19 10x6/uL (4.00-5.40); RDW 15.6 % (11.5-14.5); WBC 10.7 10x3/uL (4.8-10.8)
[2020-02-02 05:24] LABS: PLATELET COUNT 389 10x3/uL (130-400)
[2020-02-02 05:56] LABS: ALBUMIN 3.5 g/dL (3.4-5.0); ANION GAP 9.5 mmol/L (8-16); BILIRUBIN - TOTAL 0.21 mg/dL (0.2-1.3); CALCIUM 8.7 mg/dL (8.5-10.1); CARBON DIOXIDE 30.8 mmol/L (21.0-32.0); PHOSPHOROUS 4.6 mg/dL (2.5-4.9); POTASSIUM - SERUM 3.3 mmol/L (3.5-5.1); PROTEIN - SERUM 6.6 g/dL (6.4-8.2)
[2020-02-02 09:00] VITALS: BP 170/79
[2020-02-02] MEDS ORDERED: PHENERGAN25 M1 PO (11:26)
[2020-02-02] MEDS ORDERED: LOPRESSOR25 MG PO (11:27)
[2020-02-02] MEDS ORDERED: FLAGYL500 MG PO (11:28)
[2020-02-02] MEDS ORDERED: NICODERM CQ1 EAC3 TOPICAL (11:32)
--- NOTE | 2020-02-02 12:23 | MORECARE ---
CASE MANAGEMENT DISCHARGE SUMMARY PATIENT: HALI JOHNSON UNIT: [id number] ADM DATE: 01/28/20 AGE: 39 : 80 SEX: F ROOM/BED: D.9561 AUTHOR: BENITO,DOC PHYSICIAN: REFERRING PHYSICIAN: MALACHI SUMMERS MD DATE OF SERVICE: 02/02/20 Discharge Plan Patient Name: HALI JOHNSON [facility]:[place] : 1980 Planned Disposition: Home Anticipated Discharge Date: Discharge Date: Expected LOS: Initial Reviewer: [email or web address] Initial Review Date: 01/28/2020 Generated: 02/02/20 1:23 pm Comments DCP- Discharge Planning Updated by [email or web address]: Jordana Heredia on 02/02/20 11:[address] CM met with patient for additional DC needs. Patient request [facility]. Patient she has not picked up her C-Pap as yet. CM urged patient to pick it up and use it religiously. DCP- Discharge Planning Updated by [email or web address]: Marie Mark on 02/01/20 1:[address] Patient Name: HALI JOHNSON Admission Status: ER Accout number: [id number] Admission Date: 01-28-2020 : 1980 Admission Diagnosis:UNSPECIFIED ASTHMA WITH (ACUTE) EXACERBATION Attending: FANTASMA Current LOS: 4 Anticipated DC Date: Planned Disposition: Home Primary Insurance: [employer] MA[employer]GED MEDICAID Discharge Planning Comments: CM met with patient to complete initial dc planning assessment. CM educated patient on the CM role and verbal consent given by patient to complete assessment. CM verified patient's address, phone number, and emergency contact phone numbers. Pt states she gets her mail at [address] [facility], but lives with her extended family at [address] [place] [address]. At discharge patient plans to return home and feels this is a safe discharge. CM discussed availability of home health, rehab services, and medical equipment. Patient states she has become weak during this illness and would like HH. States her niece works at a home health company and would like to use them. States she will get back with CM when she discovers the name. States she uses [facility] for her CPAP. Pt is on 2 liters o2 at present. CM anticipates a walk test prior to dc to evaluate the need for home/portable oxygen. Patient denied known discharge needs at this time. Transportation provider at discharge will be her boyfriend. CM will continue to follow and will assist as needed with dc plans/needs. Aircraft Machinist Helper: Marie Mark MSN,RN,CM DCPIA - Discharge Planning Initial Assessment Updated by [email or web address]: Marie Mark on 02/01/20 1:37 pm * Is the patient Alert and Oriented? Yes * How many steps to enter\exit or inside your home? * PCP Fidencio * [facility] * Preadmission Environment Home with Family * ADLs Independent * Equipment CPAP Nebulizer * List name and contact numbers for known caregivers / representatives who currently or will assist patient after discharge: Leilani (dtr) [phone] * Verbal permission to speak to the caregivers and representatives has been obtained from the patient. Yes * Community resources currently utilized None * Additional services required to return to the preadmission environment? Yes * Can the patient safely return to the preadmission environment? Yes * Has this patient been hospitalized within the prior 30 days at any hospital? No Coverage Notice Reviewer: [email or web address] Eli Heredia Notice Issued Date-Time: 02/02/2020 12:07 Notice Type: Patient Choice Letter Notice Delivered To: Patient Relationship to Patient: Self Thermostat Repairer Name: Hali Johnson Delivery Method: HAND - Hand Delivered Tanya Days: Prior Verbal Notification: Recipient Understood Notice: Yes Recipient Signature: Yes Med Rec Note Co-signed by Attending: Coverage Notice Comment: Patient choice for [facility] signed/given to patient . Original to chart. Last DP export: 02/01/20 1:11 p Patient Name: HALI JOHNSON Page 70407 at 1223 All edits/amendments must be made on the electronic document DICTATION DATE: 02/02/20 1223 WILDLIFE CONTROL AGENT: JANA 02/02/20 1223 RPT#: [id number] DC DATE: STATUS: ADM IN [facility] [address] [place] [address] END OF REPORT
--- NOTE | 2020-02-02 13:34 | MORECARE ---
CASE MANAGEMENT DISCHARGE SUMMARY PATIENT: HALI JOHNSON UNIT: [id number] ADM DATE: 01/28/20 AGE: 39 : 80 SEX: F ROOM/BED: D.9068 AUTHOR: BENITO,DOC PHYSICIAN: REFERRING PHYSICIAN: MALACHI SUMMERS MD DATE OF SERVICE: 02/02/20 Discharge Plan Patient Name: HALI JOHNSON Facility: [facility]:[place] : 1980 Planned Disposition: Home Anticipated Discharge Date: Discharge Date: Expected LOS: Initial Reviewer: [email or web address] Initial Review Date: 01/28/2020 Generated: 02/02/20 2:34 pm Comments DCP- Discharge Planning Updated by [email or web address]: Jordana Heredia on 02/02/20 12:[address] CM met with patient for additional DC needs. Patient request [facility]. Patient she has not picked up her C-Pap ([facility]) as yet. CM urged patient to pick it up and use it religiously. DCP- Discharge Planning Updated by [email or web address]: Marie Mark on 02/01/20 1:[address] Patient Name: HALI JOHNSON Admission Status: ER Accout number: [id number] Admission Date: 01-28-2020 : 1980 Admission Diagnosis:UNSPECIFIED ASTHMA WITH (ACUTE) EXACERBATION Attending: FANTASMA Current LOS: 4 Anticipated DC Date: Planned Disposition: Home Primary Insurance: [facility] Discharge Planning Comments: CM met with patient to complete initial dc planning assessment. CM educated patient on the CM role and verbal consent given by patient to complete assessment. CM verified patient's address, phone number, and emergency contact phone numbers. Pt states she gets her mail at [address] [facility], but lives with her extended family at [address] [place] [address]. At discharge patient plans to return home and feels this is a safe discharge. CM discussed availability of home health, rehab services, and medical equipment. Patient states she has become weak during this illness and would like HH. States her niece works at a home health company and would like to use them. States she will get back with CM when she discovers the name. States she uses [facility] for her CPAP. Pt is on 2 liters o2 at present. CM anticipates a walk test prior to dc to evaluate the need for home/portable oxygen. Patient denied known discharge needs at this time. Transportation provider at discharge will be her boyfriend. CM will continue to follow and will assist as needed with dc plans/needs. General Medical Practitioner: Marie Mark MSN,RN,CM DCPIA - Discharge Planning Initial Assessment Updated by [email or web address]: Marie Mark on 02/01/20 1:37 pm * Is the patient Alert and Oriented? Yes * How many steps to enter\exit or inside your home? * PCP Fidencio * [facility] * Preadmission Environment Home with Family * ADLs Independent * Equipment CPAP Nebulizer * List name and contact numbers for known caregivers / representatives who currently or will assist patient after discharge: Leilani (dtr) [phone] * Verbal permission to speak to the caregivers and representatives has been obtained from the patient. Yes * Community resources currently utilized None * Additional services required to return to the preadmission environment? Yes * Can the patient safely return to the preadmission environment? Yes * Has this patient been hospitalized within the prior 30 days at any hospital? No Coverage Notice Reviewer: [id number] Eli Heredia Notice Issued Date-Time: 02/02/2020 12:07 Notice Type: Patient Choice Letter Notice Delivered To: Patient Relationship to Patient: Self Drawing Press Operator Name: Hali Johnson Delivery Method: HAND - Hand Delivered Tanya Days: Prior Verbal Notification: Recipient Understood Notice: Yes Recipient Signature: Yes Med Rec Note Co-signed by Attending: Coverage Notice Comment: Patient choice for [facility] signed/given to patient . Original to chart. Last DP export: 02/02/20 11:23 a Patient Name: HALI JOHNSON Page [id number] at 1334 All edits/amendments must be made on the electronic document DICTATION DATE: 02/02/20 1334 BENCH MOVER: JANA 02/02/20 1334 RPT#: [id number] DC DATE: STATUS: ADM IN [facility] [address] [place] [address] END OF REPORT
--- NOTE | 2020-02-02 13:41 | MORECARE ---
CASE MANAGEMENT DISCHARGE SUMMARY PATIENT: HALI JOHNSON UNIT: [id number] ADM DATE: 01/28/20 AGE: 39 : 80 SEX: F ROOM/BED: D.6568 AUTHOR: BENITO,DOC PHYSICIAN: REFERRING PHYSICIAN: MALACHI SUMMERS MD DATE OF SERVICE: 02/02/20 Discharge Plan Patient Name: HALI JOHNSON [facility]:[place] : 1980 Planned Disposition: Home Anticipated Discharge Date: Discharge Date: Expected LOS: Initial Reviewer: [email or web address] Initial Review Date: 01/28/2020 Generated: 02/02/20 2:40 pm Comments DCP- Discharge Planning Updated by [email or web address]: Jordana Heredia on 02/02/20 12:[address] CM met with patient for additional DC needs. Patient request [facility]. Contacted with [facility] ([phone]), faxed the referral to [phone]. Patient she has not picked up her C-Pap ([facility]) as yet. CM urged patient to pick it up and use it religiously. DCP- Discharge Planning Updated by [email or web address]: Marie Mark on 02/01/20 1:[address] Patient Name: HALI JOHNSON Admission Status: ER Accout number: [id number] Admission Date: 01-28-2020 : 1980 Admission Diagnosis:UNSPECIFIED ASTHMA WITH (ACUTE) EXACERBATION Attending: FANTASMA Current LOS: 4 Anticipated DC Date: Planned Disposition: Home Primary Insurance: [employer]ED MEDICAID Discharge Planning Comments: CM met with patient to complete initial dc planning assessment. CM educated patient on the CM role and verbal consent given by patient to complete assessment. CM verified patient's address, phone number, and emergency contact phone numbers. Pt states she gets her mail at [address] [facility], but lives with her extended family at [address] [place] [id number]. At discharge patient plans to return home and feels this is a safe discharge. CM discussed availability of home health, rehab services, and medical equipment. Patient states she has become weak during this illness and would like HH. States her niece works at a [employer] and would like to use them. States she will get back with CM when she discovers the name. States she uses [facility] for her CPAP. Pt is on 2 liters o2 at present. CM anticipates a walk test prior to dc to evaluate the need for home/portable oxygen. Patient denied known discharge needs at this time. Transportation provider at discharge will be her boyfriend. CM will continue to follow and will assist as needed with dc plans/needs. Legal Billing Coordinator: Marie Mark MSN,RN,CM DCPIA - Discharge Planning Initial Assessment Updated by [email or web address]: Marie Mark on 02/01/20 1:37 pm * Is the patient Alert and Oriented? Yes * How many steps to enter\exit or inside your home? * PCP Fidecnio * [facility] * Preadmission Environment Home with Family * ADLs Independent * Equipment CPAP Nebulizer * List name and contact numbers for known caregivers / representatives who currently or will assist patient after discharge: Leilani (dtr) [phone] * Verbal permission to speak to the caregivers and representatives has been obtained from the patient. Yes * Community resources currently utilized None * Additional services required to return to the preadmission environment? Yes * Can the patient safely return to the preadmission environment? Yes * Has this patient been hospitalized within the prior 30 days at any hospital? No Coverage Notice Reviewer: [id number] Eli Heredia Notice Issued Date-Time: 02/02/2020 12:07 Notice Type: Patient Choice Letter Notice Delivered To: Patient Relationship to Patient: Self Desktop Support Technician Name: Hali Johnson Delivery Method: HAND - Hand Delivered Tanya Days: Prior Verbal Notification: Recipient Understood Notice: Yes Recipient Signature: Yes Med Rec Note Co-signed by Attending: Coverage Notice Comment: Patient choice for [facility] signed/given to patient . Original to chart. Last DP export: 02/02/20 12:34 p Patient Name: HALI JOHNSON Page [phone] at 1341 All edits/amendments must be made on the electronic document DICTATION DATE: 02/02/20 1341 SOUND EFFECTS MANAGER: JANA 02/02/20 1341 RPT#: [id number] DC DATE: STATUS: ADM IN [facility] [address] [facility] [place] [address] END OF REPORT
--- NOTE | 2020-02-02 13:48 | MORECARE ---
CASE MANAGEMENT DISCHARGE SUMMARY PATIENT: HALI JOHNSON UNIT: [id number] ADM DATE: 01/28/20 AGE: 39 : 80 SEX: F ROOM/BED: D.9793 AUTHOR: BENITO,DOC PHYSICIAN: REFERRING PHYSICIAN: MALACHI SUMMERS MD DATE OF SERVICE: 02/02/20 Discharge Plan Patient Name: HALI JOHNSON Facility: [facility]:[place] : 1980 Planned Disposition: Home Anticipated Discharge Date: Discharge Date: Expected LOS: Initial Reviewer: [id number] Initial Review Date: 01/28/2020 Generated: 02/02/20 2:48 pm Comments DCP- Discharge Planning Updated by [id number]: Jordana Heredia on 02/02/20 12:[address] CM met with patient for additional DC needs. Patient request [facility]. Contacted with [facility] ([phone]), faxed the referral to [phone]. Patient she has not picked up her C-Pap (Aerocare) as yet. CM urged patient to pick it up and use it religiously. DCP- Discharge Planning Updated by [id number]: Marie Mark on 02/01/20 1:[address] Patient Name: HALI JOHNSON Admission Status: ER Accout number: [id number] Admission Date: 01-28-2020 : 1980 Admission Diagnosis:UNSPECIFIED ASTHMA WITH (ACUTE) EXACERBATION Attending: FANTASMA Current LOS: 4 Anticipated DC Date: Planned Disposition: Home Primary Insurance: [employer] MANAGED MEDICAID Discharge Planning Comments: CM met with patient to complete initial dc planning assessment. CM educated patient on the CM role and verbal consent given by patient to complete assessment. CM verified patient's address, phone number, and emergency contact phone numbers. Pt states she gets her mail at [address] [facility], but lives with her extended family at [address] [place] [address]. At discharge patient plans to return home and feels this is a safe discharge. CM discussed availability of home health, rehab services, and medical equipment. Patient states she has become weak during this illness and would like HH. States her niece works at a [employer] and would like to use them. States she will get back with CM when she discovers the name. States she uses Aerocare for her CPAP. Pt is on 2 liters o2 at present. CM anticipates a walk test prior to dc to evaluate the need for home/portable oxygen. Patient denied known discharge needs at this time. Transportation provider at discharge will be her boyfriend. CM will continue to follow and will assist as needed with dc plans/needs. Field Ring Assembler: Marie Mark MSN,RN,CM DCPIA - Discharge Planning Initial Assessment Updated by [id number]: Marie Mark on 02/01/20 1:37 pm * Is the patient Alert and Oriented? Yes * How many steps to enter\exit or inside your home? * PCP [facility] * [facility] * Preadmission Environment Home with Family * ADLs Independent * Equipment CPAP Nebulizer * List name and contact numbers for known caregivers / representatives who currently or will assist patient after discharge: Leilani (dtr) [phone] * Verbal permission to speak to the caregivers and representatives has been obtained from the patient. Yes * Community resources currently utilized None * Additional services required to return to the preadmission environment? Yes * Can the patient safely return to the preadmission environment? Yes * Has this patient been hospitalized within the prior 30 days at any hospital? No External Providers External Provider: [facility] Next Contact Date: Service Request Date: Service Type: Resolution: Reviewer: Comments: Coverage Notice Reviewer: [id number] Eli Heredia Notice Issued Date-Time: 02/02/2020 12:07 Notice Type: Patient Choice Letter Notice Delivered To: Patient Relationship to Patient: Self Painter Spring Name: Hali Johnson Delivery Method: HAND - Hand Delivered Tanya Days: Prior Verbal Notification: Recipient Understood Notice: Yes Recipient Signature: Yes Med Rec Note Co-signed by Attending: Coverage Notice Comment: Patient choice for [facility] signed/given to patient . Original to chart. Last DP export: 02/02/20 12:41 p Patient Name: HALI JOHNSON Page [id number] at 1348 All edits/amendments must be made on the electronic document DICTATION DATE: 02/02/20 1348 RN CARE TRANSITION: JANA 02/02/20 1348 RPT#: [id number] DC DATE: STATUS: ADM IN [facility] [address] [place] [address] END OF REPORT
--- NOTE | 2020-02-02 13:58 | MORECARE ---
CASE MANAGEMENT DISCHARGE SUMMARY PATIENT: HALI JOHNSON UNIT: [id number] ADM DATE: 01/28/20 AGE: 39 : 80 SEX: F ROOM/BED: D.4597 AUTHOR: BENITO,DOC PHYSICIAN: REFERRING PHYSICIAN: MALACHI SUMMERS MD DATE OF SERVICE: 02/02/20 Discharge Plan Patient Name: HALI JOHNSON Facility: [facility]:[place] : 1980 Planned Disposition: Home Anticipated Discharge Date: Discharge Date: Expected LOS: Initial Reviewer: [id number] Initial Review Date: 01/28/2020 Generated: 02/02/20 2:57 pm Comments DCP- Discharge Planning Updated by [id number]: Jordana Heredia on 02/02/20 12:[address] CM met with patient for additional DC needs. Patient request [facility]. Contacted with [facility] ([phone]), faxed the referral to [phone]. [facility] cannot admit the patient until per repre with [facility]. CM met with the patient again, request consideration of a different [facility], her choice is [facility]. CM contacted Sharmin, with [facility], provided required information, faxed to [phone], for consideration. Await CB. Patient she has not picked up her C-Pap (Aerocare) as yet. CM urged patient to pick it up and use it religiously. DCP- Discharge Planning Updated by [id number]: Marie Mark on 02/01/20 1:[address] Patient Name: HALI JOHNSON Admission Status: ER Accout number: [id number] Admission Date: 01-28-2020 : 1980 Admission Diagnosis:UNSPECIFIED ASTHMA WITH (ACUTE) EXACERBATION Attending: FANTASMA Current LOS: 4 Anticipated DC Date: Planned Disposition: Home Primary Insurance: [employer] MA[employer]GED MEDICAID Discharge Planning Comments: CM met with patient to complete initial dc planning assessment. CM educated patient on the CM role and verbal consent given by patient to complete assessment. CM verified patient's address, phone number, and emergency contact phone numbers. Pt states she gets her mail at [address] [place] [address], but lives with her extended family at [address] [place], [place] [address]. At discharge patient plans to return home and feels this is a safe discharge. CM discussed availability of home health, rehab services, and medical equipment. Patient states she has become weak during this illness and would like HH. States her niece works at a home health company and would like to use them. States she will get back with CM when she discovers the name. States she uses Aerocare for her CPAP. Pt is on 2 liters o2 at present. CM anticipates a walk test prior to dc to evaluate the need for home/portable oxygen. Patient denied known discharge needs at this time. Transportation provider at discharge will be her boyfriend. CM will continue to follow and will assist as needed with dc plans/needs. Soldering Inspector: Marie Mark MSN,RN, DCPIA - Discharge Planning Initial Assessment Updated by [email or web address]: Marie Mark on 02/01/20 1:37 pm * Is the patient Alert and Oriented? Yes * How many steps to enter\exit or inside your home? * PCP [facility] * [facility] * Preadmission Environment Home with Family * ADLs Independent * Equipment CPAP Nebulizer * List name and contact numbers for known caregivers / representatives who currently or will assist patient after discharge: Leilani (dtr) [phone] * Verbal permission to speak to the caregivers and representatives has been obtained from the patient. Yes * Community resources currently utilized None * Additional services required to return to the preadmission environment? Yes * Can the patient safely return to the preadmission environment? Yes * Has this patient been hospitalized within the prior 30 days at any hospital? No Coverage Notice Reviewer: [id number] Eli Heredia Notice Issued Date-Time: 02/02/2020 12:07 Notice Type: Patient Choice Letter Notice Delivered To: Patient Relationship to Patient: Self Ceo And President Name: Hali Johnson Delivery Method: HAND - Hand Delivered Tanya Days: Prior Verbal Notification: Recipient Understood Notice: Yes Recipient Signature: Yes Med Rec Note Co-signed by Attending: Coverage Notice Comment: Patient choice for [facility] signed/given to patient. Original to chart. Last DP export: 02/02/20 12:48 p Patient Name: HALI JOHNSON Page [id number] at 1358 All edits/amendments must be made on the electronic document DICTATION DATE: 02/02/20 1352 HOLLOW TILE PARTITION ERECTOR: JANA 02/02/20 1354 RPT#: [id number] DC DATE: STATUS: ADM IN [facility] [address] [place] [address] END OF REPORT
--- NOTE | 2020-02-02 15:53 | MORECARE ---
CASE MANAGEMENT DISCHARGE SUMMARY PATIENT: HALI JOHNSON UNIT: [id number] ADM DATE: 01/28/20 AGE: 39 : [birth year] SEX: F ROOM/BED: D.0567 AUTHOR: BENITO,DOC PHYSICIAN: REFERRING PHYSICIAN: MAALCHI SUMMERS MD DATE OF SERVICE: 02/02/20 Discharge Plan Patient Name: HALI JOHNSON Facility: [facility]:[place] : 1980 Planned Disposition: Home Anticipated Discharge Date: Discharge Date: Expected LOS: Initial Reviewer: [email or web address] Initial Review Date: 01/28/2020 Generated: 02/02/20 4:52 pm DCP- Discharge Planning Updated by [email or web address]: Jordana Heredia on 02/02/20 12:[address] CM met with patient for additional DC needs. Patient request [facility]. Contacted with [facility] ([phone]), faxed the referral to [phone]. [facility] cannot admit the patient until per repre with [facility]. CM met with the patient again, [facility]. CM contacted Sharmin, with [facility], provided required information, faxed to [phone], for consideration. Await CB. Patient she has not picked up her C-Pap (Aerocare) as yet. CM urged patient to pick it up and use it religiously. DCP- Discharge Planning Updated by [id number]: Marie Mark on 02/01/20 1:[address] Patient Name: HALI JOHNSON Admission Status: ER Accout number: [id number] Admission Date: 01-28-2020 : 1980 Admission Diagnosis:UNSPECIFIED ASTHMA WITH (ACUTE) EXACERBATION Attending: FANTASMA Current LOS: 4 Anticipated DC Date: Planned Disposition: Home Primary Insurance: [employer] MANAGED MEDICAID Discharge Planning Comments: CM met with patient to complete initial dc planning assessment. CM educated patient on the CM role and verbal consent given by patient to complete assessment. CM verified patient's address, phone number, and emergency contact phone numbers. Pt states she gets her mail at [address] [facility], but lives with her extended family at [address] [place] [address]. At discharge patient plans to return home and feels this is a safe discharge. CM discussed availability of home health, rehab services, and medical equipment. Patient states she has become weak during this illness and would like HH. States her niece works at a home health company and would like to use them. States she will get back with CM when she discovers the name. States she uses Aerocare for her CPAP. Pt is on 2 liters o2 at present. CM anticipates a walk test prior to dc to evaluate the need for home/portable oxygen. Patient denied known discharge needs at this time. Transportation provider at discharge will be her boyfriend. CM will continue to follow and will assist as needed with dc plans/needs. Dock Or Pier Laborer: Marie Mark MSN,RN, DCPIA - Discharge Planning Initial Assessment Updated by [id number]: Marie Mark on 02/01/20 1:37 pm * Is the patient Alert and Oriented? Yes * How many steps to enter\exit or inside your home? * PCP [facility] * [facility] * Preadmission Environment Home with Family * ADLs Independent * Equipment CPAP Nebulizer * List name and contact numbers for known caregivers / representatives who currently or will assist patient after discharge: Leilani (dtr) [phone] * Verbal permission to speak to the caregivers and representatives has been obtained from the patient. Yes * Community resources currently utilized None * Additional services required to return to the preadmission environment? Yes * Can the patient safely return to the preadmission environment? Yes * Has this patient been hospitalized within the prior 30 days at any hospital? No External Providers External Provider: [facility] Next Contact Date: Service Request Date: Service Type: Resolution: Reviewer: Comments: Coverage Notice Reviewer: [id number] Eli Heredia Notice Issued Date-Time: 02/02/2020 12:07 Notice Type: Patient Choice Letter Notice Delivered To: Patient Relationship to Patient: Self Generator Mechanic Name: Hali Johnson Delivery Method: HAND - Hand Delivered Tanya Days: Prior Verbal Notification: Recipient Understood Notice: Yes Recipient Signature: Yes Med Rec Note Co-signed by Attending: Coverage Notice Comment: Patient choice for [facility], [facility] signed/given to patient. Original to chart. Last DP export: 02/02/20 12:58 p Patient Name: HALI JOHNSON Page [phone] at 1553 All edits/amendments must be made on the electronic document DICTATION DATE: 02/02/201551 EDUCATION INSTRUCTOR: JANA 02/02/201551 RPT#: [id number] DC DATE: STATUS: ADM IN [facility] [address] [place] [address] END OF REPORT
--- NOTE | 2020-02-02 15:59 | MORECARE ---
CASE MANAGEMENT DISCHARGE SUMMARY PATIENT: HALI JOHNSON UNIT: [id number] ADM DATE: 01/28/20 AGE: 39 : 80 SEX: F ROOM/BED: D.9064 AUTHOR: BENITO,DOC PHYSICIAN: REFERRING PHYSICIAN: MALACHI SUMMERS MD DATE OF SERVICE: 02/02/20 Discharge Plan Patient Name: HALI JOHNSON Facility: [facility]:[place] : 1980 Planned Disposition: Home Anticipated Discharge Date: Discharge Date: Expected LOS: Initial Reviewer: [id number] Initial Review Date: 01/28/2020 Generated: 02/02/20 4:59 pm Comments DCP- Discharge Planning Updated by [email or web address]: Jordana Heredia on 02/02/20 2:[address] Refaxed paperwork to [employer], as Sharmin states she did not get it. CM met with patient for additional DC needs. Patient request [facility]. Contacted with [facility] ([phone]), faxed the referral to [phone]. [facility] cannot admit the patient until per repre with [facility]. CM met with the patient again, request consideration of a different [facility], her choice is [facility]. CM contacted Sharmin, with [facility], provided required information, faxed to [phone], for consideration. Await CB. Patient she has not picked up her C-Pap (Aerocare) as yet. CM urged patient to pick it up and use it religiously. DCP- Discharge Planning Updated by [email or web address]: Marie Mark on 02/01/20 1:[address] Patient Name: HALI JOHNSON Admission Status: ER Accout number: [id number] Admission Date: 01-28-2020 : 1980 Admission Diagnosis:UNSPECIFIED ASTHMA WITH (ACUTE) EXACERBATION Attending: FANTASMA Current LOS: 4 Anticipated DC Date: Planned Disposition: Home Primary Insurance: [employer] MANAGED MEDICAID Discharge Planning Comments: CM met with patient to complete initial dc planning assessment. CM educated patient on the CM role and verbal consent given by patient to complete assessment. CM verified patient's address, phone number, and emergency contact phone numbers. Pt states she gets her mail at [address] [place] [address], but lives with her extended family at [address] [place] [address], [place] [address]. At discharge patient plans to return home and feels this is a safe discharge. CM discussed availability of home health, rehab services, and medical equipment. Patient states she has become weak during this illness and would like HH. States her niece works at a home health company and would like to use them. States she will get back with CM when she discovers the name. States she uses Aerocare for her CPAP. Pt is on 2 liters o2 at present. CM anticipates a walk test prior to dc to evaluate the need for home/portable oxygen. Patient denied known discharge needs at this time. Transportation provider at discharge will be her boyfriend. CM will continue to follow and will assist as needed with dc plans/needs. Digital Forensic Analyst: Marie Mark MSN,RN,CM DCPIA - Discharge Planning Initial Assessment Updated by [email or web address]: Marie Mark on 02/01/20 1:37 pm * Is the patient Alert and Oriented? Yes * How many steps to enter\exit or inside your home? 0 * PCP [facility] * [facility] * Preadmission Environment Home with Family * ADLs Independent * Equipment CPAP Nebulizer * List name and contact numbers for known caregivers / representatives who currently or will assist patient after discharge: Leilani (dtr) [phone] * Verbal permission to speak to the caregivers and representatives has been obtained from the patient. Yes * Community resources currently utilized None * Additional services required to return to the preadmission environment? Yes * Can the patient safely return to the preadmission environment? Yes * Has this patient been hospitalized within the prior 30 days at any hospital? No Coverage Notice Reviewer: [id number] Eli Heredia Notice Issued Date-Time: 02/02/2020 12:07 Notice Type: Patient Choice Letter Notice Delivered To: Patient Relationship to Patient: Self Head Of Acquisitions Name: Hali Johnson Delivery Method: HAND - Hand Delivered Tanya Days: Prior Verbal Notification: Recipient Understood Notice: Yes Recipient Signature: Yes Med Rec Note Co-signed by Attending: Coverage Notice Comment: Patient choice for [facility] signed/given to patient. Original to chart. Last DP export: 02/02/20 2:53 p Patient Name: HAIL JOHNSON Page [phone] at 1559 All edits/amendments must be made on the electronic document DICTATION DATE: 02/02/201558 HOTEL ASSISTANT GENERAL MANAGER: JANA 02/02/201558 RPT#: [id number] DC DATE: STATUS: [facility] [address] [place] [address] END OF REPORT
--- NOTE | 2020-02-03 08:59 | MORECARE ---
CASE MANAGEMENT DISCHARGE SUMMARY PATIENT: HALI JOHNSON UNIT: [id number] ADM DATE: 01/28/20 AGE: 39 : 80 SEX: F ROOM/BED: D.4374 AUTHOR: BENITO,DOC PHYSICIAN: REFERRING PHYSICIAN: MALACHI SUMMERS MD DATE OF SERVICE: 02/03/20 Discharge Plan Patient Name: HALI JOHNSON Facility: [facility]:[place] : 1980 Planned Disposition: Home Anticipated Discharge Date: Discharge Date: 02/02/2020 Expected LOS: Initial Reviewer: [id number] Initial Review Date: 01/28/2020 Generated: 02/03/20 9:58 am Comments DCP- Discharge Planning Updated by [id number]: Jordana Heredia on 02/02/20 2:[address] Refaxed paperwork to [facility], as Sharmin states she did not get it. CM met with patient for additional DC needs. Patient request [facility]. Contacted with [facility] ([phone]), faxed the referral to [phone]. [facility] cannot admit the patient until per repre with [facility]. CM met with the patient again, request consideration of a different [facility], her choice is [facility]. CM contacted Sharmin, with [facility], provided required information, faxed to [phone], for consideration. Await CB. Patient she has not picked up her C-Pap (Aerocare) as yet. CM urged patient to pick it up and use it religiously. DCP- Discharge Planning Updated by [id number]: Marie Mark on 02/01/20 1:[address] Patient Name: HALI JOHNSON Admission Status: ER Accout number: [id number] Admission Date: 01-28-2020 : 1980 Admission Diagnosis:UNSPECIFIED ASTHMA WITH (ACUTE) EXACERBATION Attending: FANTASMA Current LOS: 4 Anticipated DC Date: Planned Disposition: Home Primary Insurance: [employer] MANAGED MEDICAID Discharge Planning Comments: CM met with patient to complete initial dc planning assessment. CM educated patient on the CM role and verbal consent given by patient to complete assessment. CM verified patient's address, phone number, and emergency contact phone numbers. Pt states she gets her mail at [address] [facility], but lives with her extended family at [address] [place] [address], [facility] [address]. At discharge patient plans to return home and feels this is a safe discharge. CM discussed availability of home health, rehab services, and medical equipment. Patient states she has become weak during this illness and would like HH. States her niece works at a home health company and would like to use them. States she will get back with CM when she discovers the name. States she uses [employer]oc[employer] for her CPAP. Pt is on 2 liters o2 at present. CM anticipates a walk test prior to dc to evaluate the need for home/portable oxygen. Patient denied known discharge needs at this time. Transportation provider at discharge will be her boyfriend. CM will continue to follow and will assist as needed with dc plans/needs. Utilization Review Coordinator: Marie Mark MSN,RN,CM DCPIA - Discharge Planning Initial Assessment Updated by [email or web address]: Marie Mark on 02/01/20 1:37 pm * Is the patient Alert and Oriented? Yes * How many steps to enter\exit or inside your home? 0 * PCP [facility] * [facility] * Preadmission Environment Home with Family * ADLs Independent * Equipment CPAP Nebulizer * List name and contact numbers for known caregivers / representatives who currently or will assist patient after discharge: Leilani (dtr) [phone] * Verbal permission to speak to the caregivers and representatives has been obtained from the patient. Yes * Community resources currently utilized None * Additional services required to return to the preadmission environment? Yes * Can the patient safely return to the preadmission environment? Yes * Has this patient been hospitalized within the prior 30 days at any hospital? No Coverage Notice Reviewer: [id number] Eli Heredia Notice Issued Date-Time: 02/02/2020 12:07 Notice Type: Patient Choice Letter Notice Delivered To: Patient Relationship to Patient: Self Smoke Jumper Supervisor Name: Hali Johnson Delivery Method: HAND - Hand Delivered Tanya Days: Prior Verbal Notification: Recipient Understood Notice: Yes Recipient Signature: Yes Med Rec Note Co-signed by Attending: Coverage Notice Comment: Patient choice for [facility], [facility] signed/given to patient. Original to chart. Last DP export: 02/02/20 2:59 p Patient Name: HALI JOHNSON Page [phone] at 0859 All edits/amendments must be made on the electronic document DICTATION DATE: 02/03/20857 FIELD APPLICATIONS SPECIALIST: JANA 02/03/20857 RPT#: [id number] DC DATE:02/02/20 STATUS: DIS IN [facility] [address] [place] [address] END OF REPORT
== END 2020-02-02 16:41 | disposition home health service (06) | DRG 202 ==
LOC: D.ER 01:57 → D.M2 04:11 → D.MS 04:11 → D.M2 16:14
PROVIDERS: Emergency Medicine; Family Medicine; ADMIT Family Medicine; ATTEND Family Medicine
DX: J45.901 Unspecified asthma with (acute) exacerbation (principal); Z68.41 Body mass index [BMI] 40.0-44.9, adult; F17.213 Nicotine dependence, cigarettes, with withdrawal; A08.4 Viral intestinal infection, unspecified; D50.9 Iron deficiency anemia, unspecified; E66.01 Morbid (severe) obesity due to excess calories; K21.9 Gastro-esophageal reflux disease without esophagitis; I12.9 Hypertensive chronic kidney disease with stage 1 through stage 4 chronic kidney disease, or unspecified chronic kidney disease; N18.9 Chronic kidney disease, unspecified; G89.4 Chronic pain syndrome; F12.90 Cannabis use, unspecified, uncomplicated; E86.0 Dehydration; D26.0 Other benign neoplasm of cervix uteri; J44.9 Chronic obstructive pulmonary disease, unspecified